=== PATIENT | male | born 1945 | race Caucasian/White ===

== ENCOUNTER 2016-10-25 15:48 | Outpatient (CLI) | payer OTHER ==
--- NOTE | 2016-10-25 16:22 | DIAGNOSTIC IMAGING REPORT ---
PROCEDURE: XR CHEST 2 VIEW INDICATION: CERVICALGIA TECHNIQUE: PA and lateral views. COMPARISON: None. FINDINGS: Lungs are clear. Heart and mediastinum are normal. Thorax is normal. IMPRESSION: 1. Negative chest.
--- NOTE | 2016-10-25 16:31 | DIAGNOSTIC IMAGING REPORT ---
PROCEDURE: XR CERVICAL SPINE 4 OR 5 VIEW INDICATION: CERVICALGIA TECHNIQUE: Five views. COMPARISON: None. FINDINGS: There is spondylosis at C5-6 with disc space narrowing and a posterior osteophytic ridge. There is also bilateral foraminal encroachment secondary to uncinate process hypertrophy. IMPRESSION: 1. Spondylosis C5-6 with an osteophytic ridge and bilateral neural foraminal encroachment.
== END 2016-10-25 23:00 ==
LOC: XR SRH 15:48
DX: M54.2 Cervicalgia (principal); M47.812 Spondylosis without myelopathy or radiculopathy, cervical region

== ENCOUNTER 2016-10-31 09:38 | Outpatient (CLI) | payer OTHER ==
--- NOTE | 2016-10-31 11:57 | DIAGNOSTIC IMAGING REPORT ---
PROCEDURE: CT THORAX WITH CONTRAST INDICATION: SOLITARY PULMONARY NODULE TECHNIQUE: 125 ml of Isovue 300 was injected intravenously and axial images were obtained of the chest with coronal and sagittal reformations. COMPARISON: Chest x-ray 10/25/2016. FINDINGS: No evidence of a pulmonary nodule corresponding to the chest x-ray finding. A 3 mm ground-glass right middle lobe peripheral nodule, indeterminate but likely postinflammatory. No adenopathy or effusion. Mild atherosclerosis of the aorta. Dense coronary atherosclerosis. Heart size at the upper limits of normal. Multiple hepatic cysts, largest in the left hepatic lobe 1.7 cm. Probable nonobstructing right renal calculi. Small hiatal hernia. Mild chronic T8 compression fracture. Old sternal fracture. IMPRESSION: 1. No evidence of a pulmonary nodule 2. Dense coronary atherosclerosis 3. Small hiatal hernia 4. Probable nonobstructing right renal calculi
== END 2016-10-31 23:00 ==
LOC: CT SRH 09:38
DX: I25.10 Atherosclerotic heart disease of native coronary artery without angina pectoris (principal); K44.9 Diaphragmatic hernia without obstruction or gangrene